=== PATIENT | female | born 1970 | race Native Hawaiian/Other Pacific Islander ===

== ENCOUNTER 2017-09-18 18:48 | Emergency (ER) | payer OTHER ==
[~2017-09-18] VITALS: Ht 165.1 cm; Wt 88.5 kg
== END 2017-09-18 20:20 | disposition home or self-care (01) ==
LOC: ED 18:48
DX: S30.0XXA Contusion of lower back and pelvis, initial encounter (principal); W18.30XA Fall on same level, unspecified, initial encounter
CPT/HCPCS: 96372; 99283; J1885

== ENCOUNTER 2018-11-24 20:03 | Emergency (ER) | payer OTHER ==
[~2018-11-24] VITALS: Ht 165.1 cm; Wt 88.5 kg
[2018-11-24 22:43] VITALS: BP 140/78; TEMP 97.3
== END 2018-11-24 22:43 | disposition home or self-care (01) ==
LOC: ED 20:03
DX: M54.2 Cervicalgia (principal); M54.89 Other dorsalgia; M62.838 Other muscle spasm; V43.52XA Car driver injured in collision with other type car in traffic accident, initial encounter; Y93.89 Activity, other specified; Y92.89 Other specified places as the place of occurrence of the external cause
CPT/HCPCS: 96372; 99283; J1885